=== PATIENT | female | born 1980 | race Caucasian/White ===

== ENCOUNTER 2024-11-23 10:30 | Day surgery (SDC) | payer OTHER ==
[~2024-11-23] VITALS: Ht 177.8 cm; Wt 70.5 kg
[2024-11-23] MEDS ORDERED: Lactated Ringer's 1,000 ML IV SCH (10:55)
[2024-11-23] MEDS ORDERED: LEVSOD25 PO (11:12)
[2024-11-23] MEDS ORDERED: ORAL CONTRACEPTIVE (11:13)
[2024-11-23] MEDS ORDERED: Vitamin B Comple1 EA PO (11:15)
[2024-11-23] MEDS ORDERED: Vitamin D1000 UNI1 PO (11:15)
[2024-11-23 11:28] VITALS: BP 147/92
--- NOTE | 2024-11-23 11:28 | NUR ---
History, Chart, Medications and Allergies reviewed before start of procedure.Pre-Op teaching done. Pt verbalizes understanding. Patient confirms NPO status and agrees with scheduled surgery.
[2024-11-23] MEDS ORDERED: propofoL 40 ML IV ONE (11:34)
--- NOTE | 2024-11-23 11:48 | NUR ---
11/23/24 1148 Mireya Soto CONFIRMED AND REVIEWED H&P, MEDCICATIONS, ALLERGIES, MEDICAL HISTORY, RESPIRATORY HISTORY, VITAL SIGNS, 3-LEAD EKG, CONSENTS, AND PHYSICIAN ORDERS. PATIENT CONFIRMS NPO STATUS AND AGREES WITH SCHEDULED PROCEDURE. MONITOR INTACT WITH CONTINUOUS PULSE OXIMETRY, CAPNOGRAPHY, 3-LEAD EKG, INTERMITTENT BP. SUPPLEMENTAL O2 TO BE TITRATED THROUGHOUT PROCEDURE TO MAINTAIN O2 SATURATION ABOVE 90%. PATIENT DETERMINED TO BE ASA APPROPRIATE FOR PROPOFOL SEDATION PRIOR TO START OF PROCEDURE BY DR. CALDERON.
[2024-11-23 12:13] VITALS: BP 118/71
--- NOTE | 2024-11-23 12:34 | NUR ---
Discharge instructions reviewed with patient. Patient verbalizes understanding. Copy given to patient to take home. Patient States Post-Procedure ride home has been arranged. Discharged via wheelchair to private car for ride home.
== END 2024-11-23 12:35 | disposition home or self-care (01) ==
LOC: ORSCMMR 10:30
PROVIDERS: Internal Medicine Gastroenterology
PROC: 0DBM8ZX Excision of Descending Colon, Via Natural or Artificial Opening Endoscopic, Diagnostic (ICD-10-PCS; principal; 2024-11-23 11:30)
DX: Z12.11 Encounter for screening for malignant neoplasm of colon (principal); Z80.0 Family history of malignant neoplasm of digestive organs; K63.5 Polyp of colon; E03.9 Hypothyroidism, unspecified; Z79.899 Other long term (current) drug therapy
CPT/HCPCS: 88305; J2704; J7120